=== PATIENT | female | born 1990 | race Caucasian/White ===

== ENCOUNTER 2020-07-24 09:22 | Outpatient (CLI) | payer OTHER ==
[~2020-07-24] VITALS: Ht 172.7 cm; Wt 64.4 kg
[~2020-07-24 09:22] MED LIST: INFLIXIMAB BIOSIMILAR 300 MG in NS 220 ML IV ONE; IRON65TA2 PO; NS 1,000 ML IV SCH; THERTAB52 PO
[2020-07-24 10:00] VITALS: BP 111/58
[2020-07-24 10:31] VITALS: BP 116/64
[2020-07-24 10:45] VITALS: BP 115/75
[2020-07-24 12:11] VITALS: BP 119/68
== END 2020-07-24 12:10 | disposition home or self-care (01) ==
LOC: M INFU 09:22
PROVIDERS: ATTEND Internal Medicine Gastroenterology
DX: K50.10 Crohn's disease of large intestine without complications (principal)
CPT/HCPCS: 96365; 96366; Q5103

== ENCOUNTER 2020-08-08 07:22 | Outpatient (CLI) | payer OTHER ==
[~2020-08-08] VITALS: Ht 172.7 cm; Wt 64.5 kg
[2020-08-08] VITALS (8 sets, daily range): BP systolic 100–118; BP diastolic 57–64
== END 2020-08-08 10:15 | disposition home or self-care (01) ==
LOC: M INFU 07:22
PROVIDERS: ATTEND Internal Medicine Gastroenterology
DX: K50.10 Crohn's disease of large intestine without complications (principal)
CPT/HCPCS: 96365; 96366; Q5103

== ENCOUNTER 2021-07-20 12:57 | Outpatient (CLI) | payer OTHER ==
[~2021-07-20] VITALS: Ht 172.7 cm; Wt 70.8 kg
[2021-07-20 13:00] VITALS: BP 120/66
[2021-07-20] MEDS ORDERED: NS 1,000 ML IV SCH (13:00)
[2021-07-20] MEDS ORDERED: INFLIXIMAB BIOSIMILAR 400 MG in NS 210 ML IV ONE (13:00)
[2021-07-20] MEDS ORDERED: ACETAMINOPHEN 650MG PO PRIOR TO INFUSION PO ONE (13:00)
[2021-07-20 13:40] VITALS: BP 128/70
[2021-07-20 14:00] VITALS: BP 118/72
[2021-07-20 14:20] VITALS: BP 108/62
[2021-07-20 14:35] VITALS: BP 117/66
[2021-07-20 15:35] VITALS: BP 125/68
== END 2021-07-20 15:45 | disposition home or self-care (01) ==
LOC: M INFU 12:57
PROVIDERS: ATTEND Internal Medicine Gastroenterology
DX: K50.10 Crohn's disease of large intestine without complications (principal)
CPT/HCPCS: 96413; 96415; Q5103

== ENCOUNTER 2021-10-30 11:32 | Outpatient (CLI) | payer OTHER ==
[~2021-10-30] VITALS: Ht 172.7 cm; Wt 61.8 kg
[~2021-10-30 11:32] MED LIST changes: -NS 1,000 ML IV SCH
[2021-10-30 12:22] VITALS: BP 113/68
[2021-10-30 12:30] VITALS: BP 115/74
[2021-10-30 13:30] VITALS: BP 118/60
== END 2021-10-30 13:35 | disposition home or self-care (01) ==
LOC: M INFU 11:32
PROVIDERS: ATTEND Internal Medicine Gastroenterology
DX: K50.10 Crohn's disease of large intestine without complications (principal)
CPT/HCPCS: 96413; Q5103

== ENCOUNTER 2022-02-01 14:40 | Outpatient (CLI) | payer OTHER ==
[~2022-02-01] VITALS: Ht 172.7 cm; Wt 62.6 kg
[2022-02-01 14:25] VITALS: BP 105/66
[2022-02-01 14:40] VITALS: BP 108/66
[~2022-02-01 14:40] MED LIST changes: +NS 1,000 ML IV SCH
[2022-02-01 15:05] VITALS: BP 115/63
[2022-02-01 15:30] VITALS: BP 13/67
== END 2022-02-01 15:40 | disposition home or self-care (01) ==
LOC: M INFU 14:40
PROVIDERS: ATTEND Internal Medicine Gastroenterology
DX: K50.10 Crohn's disease of large intestine without complications (principal)
CPT/HCPCS: 96413; Q5103

== ENCOUNTER 2022-04-16 12:59 | Emergency (ER) | payer OTHER ==
[~2022-04-16] VITALS: Ht 172.7 cm; Wt 54.5 kg
[~2022-04-16 12:59] MED LIST changes: -INFLIXIMAB BIOSIMILAR 300 MG in NS 220 ML IV ONE; -NS 1,000 ML IV SCH
[2022-04-16] MEDS ORDERED: ACETAMINOPHEN TAB 650MG DOSE (2X325MG) PO ONE (13:10)
[2022-04-16] MEDS ORDERED: ACETAMINOPHEN 325 MG/10.15 ML UDC PO ONE (13:55)
[2022-04-16 19:32] VITALS: BP 107/68
[2022-04-16 20:25] LABS: BASO % 0.4 % (0.0-1.0); EOS % 0.2 % (0.0-3.0); HEMATOCRIT 24.3 % (36.0-47.0); LYMPH # 1.8 10^3/uL (1.5-5.0); LYMPH % 40.3 % (24.0-44.0); MEAN CORPUSCULAR HEMOGLOBIN 17.3 pg (27.0-33.0); MEAN CORPUSCULAR HGB CONC 25.9 g/dl (32.0-36.5); MEAN CORPUSCULAR VOLUME 66.8 fl (80.0-96.0); MONO # 0.8 10^3/uL (0.0-0.8); MONO % 16.9 % (2.0-8.0); NEUTROPHILS # 1.9 10^3/uL (1.5-8.5); PLATELET COUNT, AUTOMATED 368 10^3/uL (150-450); RED BLOOD COUNT 3.64 10^6/uL (4.00-5.40); WHITE BLOOD COUNT 4.5 10^3/uL (4.0-10.0)
[2022-04-16 20:29] LABS: HEMOGLOBIN 6.3 g/dl (12.0-15.5)
== END 2022-04-16 21:00 | disposition left against medical advice (07) ==
LOC: M ED 12:59
DX: U07.1 COVID-19 (principal); J06.9 Acute upper respiratory infection, unspecified; D50.9 Iron deficiency anemia, unspecified; K50.90 Crohn's disease, unspecified, without complications; Z79.899 Other long term (current) drug therapy

== ENCOUNTER 2022-05-20 15:48 | Outpatient (CLI) | payer OTHER ==
[~2022-05-20] VITALS: Ht 172.7 cm; Wt 63.0 kg
[~2022-05-20 15:48] MED LIST changes: +ALBUTEROL SULFATE 2.5MG/0.5ML INH NEB SOLN INH PRN; +EPINEPHrine INJ 1 MG/ML 1ML AMP IM PRN; +NS 1,000 ML IV SCH; +VEDOLIZUMAB 300 MG in NS 250 ML IV ONE; +diphenhydrAMINE 50MG/ML VIAL IV PRN; +methylPREDNISolone 125MG 2ML VIAL IV PRN
[2022-05-20 15:59] VITALS: BP 116/64
[2022-05-20 16:38] VITALS: BP 121/67
== END 2022-05-20 16:40 | disposition home or self-care (01) ==
LOC: M INFU 15:48
PROVIDERS: ATTEND Internal Medicine Gastroenterology
DX: K50.10 Crohn's disease of large intestine without complications (principal)
CPT/HCPCS: 96365; J3380

== ENCOUNTER → 2022-07-19 | Outpatient (CLI) | payer OTHER ==
[~2022-07-19] VITALS: Ht 172.7 cm; Wt 62.6 kg
[~2022-07-19] MED LIST changes: -ALBUTEROL SULFATE 2.5MG/0.5ML INH NEB SOLN INH PRN; -EPINEPHrine INJ 1 MG/ML 1ML AMP IM PRN; -NS 1,000 ML IV SCH; -VEDOLIZUMAB 300 MG in NS 250 ML IV ONE; -diphenhydrAMINE 50MG/ML VIAL IV PRN; -methylPREDNISolone 125MG 2ML VIAL IV PRN
== END ==
LOC: M INFU 16:35
PROVIDERS: ATTEND Internal Medicine Gastroenterology
DX: K50.10 Crohn's disease of large intestine without complications (principal); Z53.9 Procedure and treatment not carried out, unspecified reason